=== PATIENT | female | born 1960 | race African-American/Black ===

== ENCOUNTER 2021-05-03 08:00 | Outpatient (CLI) | payer OTHER | END 2021-05-03 08:30 | disposition home or self-care (01) | LOC: PPH VACUNA 08:00 | PROVIDERS: ATTEND Emergency Medicine Pediatric Emergency Medicine | DX: Z23 Encounter for immunization (principal) ==

== ENCOUNTER 2021-11-15 10:48 | Emergency (ER) | payer OTHER ==
[~2021-11-15] VITALS: Ht 170.2 cm; Wt 82.6 kg
[2021-11-15] MEDS ORDERED: SYNTHROID75 MCG (11:23)
[2021-11-15] MEDS ORDERED: ALPRAZOLAM0.5 M1 (11:23)
[2021-11-15] MEDS ORDERED: XARELTO10 MG (11:23)
[2021-11-15] MEDS ORDERED: PLAVIX75 MG (11:24)
[2021-11-15] MEDS ORDERED: TOPROL XL50 M1 (11:24)
[2021-11-15] MEDS ORDERED: COZAAR100 MG (11:24)
== END 2021-11-15 17:33 | disposition home or self-care (01) ==
LOC: ER 10:48
DX: R07.9 Chest pain, unspecified (principal); F43.10 Post-traumatic stress disorder, unspecified